=== PATIENT | male | born 1965 | race African-American/Black ===

== ENCOUNTER 2017-05-02 00:06 | Emergency (ER) | payer MEDICARE, MEDICAID ==
[~2017-05-02] VITALS: Ht 182.9 cm; Wt 90.0 kg
[~2017-05-02 00:06] MED LIST: CEPH-368 PO; DOXY100T PO; LACT1CAP24 PO; PHEN100C PO; PHEN100C4 PO; PHEN300C4 PO; PHEN30CA PO; PHEN50TA4 PO
[2017-05-02] MEDS ORDERED: LORazepam 1MG TABLET PO ONE (00:30)
[2017-05-02] MEDS ORDERED: LORazepam 1MG TABLET ONE (00:30)
[2017-05-02 01:42] LABS: BLOOD UREA NITROGEN 19 mg/dL (7-18)
[2017-05-02 01:45] LABS: ASPARTATE AMINO TRANSFERASE 14 U/L (15-37)
[2017-05-02] MEDS ORDERED: FILTER 0.22 MICRON IV ONE (02:30)
[2017-05-02] MEDS ORDERED: PHENYTOIN 100 MG CAPSULE PO ONE (02:30)
[2017-05-02] MEDS ORDERED: PHENYTOIN SODIUM 1,000 MG in SODIUM CHLORIDE 0.9% 100 ML IV ONE (02:30)
[2017-05-02 05:42] VITALS: BP 112/63
== END 2017-05-02 05:46 | disposition home or self-care (01) ==
LOC: ED 05:40
DX: G40.909 Epilepsy, unspecified, not intractable, without status epilepticus (principal); F17.210 Nicotine dependence, cigarettes, uncomplicated
CPT/HCPCS: 36415; 80053; 80185; 80307; 96365; 99284; J1165

== ENCOUNTER 2017-09-21 06:13 | Emergency (ER) | payer MEDICARE, MEDICAID ==
[~2017-09-21] VITALS: Ht 218.4 cm; Wt 87.0 kg
[2017-09-21 06:55] LABS: BASOPHILS # (AUTO) 0.02 x10^3/uL (0-0.1); BASOPHILS % (AUTO) 1 % (0-1); EOSINOPHILS # (AUTO) 0.02 x10^3/uL (0-0.4); EOSINOPHILS % (AUTO) 1 % (1-7); LYMPHOCYTES # (AUTO) 1.21 x10^3/uL (1-3.4); LYMPHOCYTES % (AUTO) 32 % (22-44); MD NO; MEAN CORPUSCULAR HGB CONC 34.8 g/dL (33.2-36.2); MEAN CORPUSCULAR VOLUME 89.2 fL (81-97); MEAN PLATELET VOLUME 6.9 fL (7.4-10.4); MONOCYTES # (AUTO) 0.39 x10^3/uL (0.2-0.8); MONOCYTES % (AUTO) 10 % (2-9); NEUTROPHILS # (AUTO) 2.19 x10^3/uL (1.8-6.8); NEUTROPHILS % (AUTO) 57 % (42-75); PLATELET COUNT 178 x10^3/uL (130-400); RED BLOOD COUNT 5.03 x10^6/uL (4.38-5.82); RED CELL DISTRIBUTION WIDTH 14.7 % (9.4-14.8)
[2017-09-21 07:06] LABS: ANION GAP 6 mmol/L (5-15); CALCIUM 8.8 mg/dL (8.5-10.1); CHLORIDE 109 mmol/L (98-107); CREATININE 0.99 mg/dL (0.7-1.3)
[2017-09-21 08:10] VITALS: BP 120/63
== END 2017-09-21 08:16 | disposition home or self-care (01) ==
LOC: ED 08:00
DX: R56.9 Unspecified convulsions (principal)
CPT/HCPCS: 36415; 80048; 80185; 82040; 85025; 99284

== ENCOUNTER 2017-09-21 11:39 | Emergency (ER) | payer MEDICARE, MEDICAID ==
[~2017-09-21] VITALS: Ht 218.4 cm; Wt 109.0 kg
[2017-09-21 12:45] LABS: AMPHETAMINE SCREEN, URINE Negative (Negative); BARBITURATE SCREEN, URINE Negative (Negative); BENZODIAZEPINE SCREEN, URINE Negative (Negative); CANNABINOID SCREEN, URINE Positive (Negative); COCAINE SCREEN, URINE Negative (Negative); METHADONE SCREEN, URINE Negative (Negative); OPIATE SCREEN, URINE Negative (Negative)
[2017-09-21 14:25] VITALS: BP 146/86
== END 2017-09-21 14:27 | disposition home or self-care (01) ==
LOC: ED 14:19
DX: R56.9 Unspecified convulsions (principal); F12.10 Cannabis abuse, uncomplicated
CPT/HCPCS: 36415; 80156; 80307; 99284; G0479

== ENCOUNTER 2020-02-12 16:24 | Emergency (ER) | payer MEDICARE, MEDICAID ==
[~2020-02-12] VITALS: Ht 218.4 cm; Wt 99.4 kg
[2020-02-12] MEDS ORDERED: SODIUM CHLORIDE FLUSH 10ML SYR IVF ONE (17:00)
[2020-02-12] MEDS ORDERED: KETOROLAC 30 MG/1 ML IVPush ONE (17:00)
[2020-02-12] MEDS ORDERED: ASPIRIN 81 MG TABLET CHEW PO ONE (17:00)
[2020-02-12] MEDS ORDERED: KETOROLAC 30 MG/1 ML ONE (17:07)
[2020-02-12] MEDS ORDERED: ASPIRIN 81 MG TABLET CHEW ONE (17:07)
--- NOTE | 2020-02-12 17:22 | NUR ---
PT HAS HAD SHARP LEFT SIDE CHEST PAIN THAT INCREASES WITH BREATHING OR COUGHING. PT IN BED IN GOWN WITH CONT CARDIAC MONITORM SPO2, BP Q 30 MIN, 20 G IV LEFT ARM. WENT OVER PLAN OF CARE FROM ORDER LIST, AGREES TO PLAN. NAD
[2020-02-12 17:24] LABS: BASOPHILS # (AUTO) 0.01 x10^3/uL (0-0.1); BASOPHILS % (AUTO) 0 % (0-1); EOSINOPHILS # (AUTO) 0.07 x10^3/uL (0-0.4); EOSINOPHILS % (AUTO) 2 % (1-7); LYMPHOCYTES # (AUTO) 1.33 x10^3/uL (1-3.4); LYMPHOCYTES % (AUTO) 30 % (22-44); MD NO; MEAN CORPUSCULAR HEMOGLOBIN 29.9 pg (27.5-34.5); MEAN CORPUSCULAR HGB CONC 34.1 g/dL (33.2-36.2); MEAN CORPUSCULAR VOLUME 87.6 fL (81-97); MONOCYTES # (AUTO) 0.17 x10^3/uL (0.2-0.8); MONOCYTES % (AUTO) 4 % (2-9); NEUTROPHILS # (AUTO) 2.89 x10^3/uL (1.8-6.8); NEUTROPHILS % (AUTO) 65 % (42-75); PLATELET COUNT 178 x10^3/uL (130-400); RED BLOOD COUNT 4.55 x10^6/uL (4.38-5.82); RED CELL DISTRIBUTION WIDTH 16.1 % (9.4-14.8)
[2020-02-12 17:34] LABS: ALBUMIN 3.6 g/dL (3.4-5.0); ANION GAP 4 mmol/L (5-15); CALCIUM 8.7 mg/dL (8.5-10.1); CHLORIDE 110 mmol/L (98-107); CREATININE 1.23 mg/dL (0.7-1.3)
[2020-02-12 17:38] LABS: TROPONIN I < 0.015 ng/mL (0.000-0.045)
--- NOTE | 2020-02-12 18:57 | NUR ---
ASSUMED CARE OF PT.
[2020-02-12 19:20] VITALS: BP 148/72
[2020-02-12] MEDS ORDERED: OMNIPAQUE 350 MG/ML, 100ML BOTTLE ONE (21:58)
== END 2020-02-12 19:39 | disposition home or self-care (01) ==
LOC: ED 19:28
DX: R07.89 Other chest pain (principal); R05 Cough; R06.02 Shortness of breath; R94.31 Abnormal electrocardiogram [ECG] [EKG]; G40.909 Epilepsy, unspecified, not intractable, without status epilepticus
CPT/HCPCS: 36415; 71046; 71275; 80048; 82040; 83690; 84484; 85025; 85379; 93005; 96374; 99285; J1885; Q9967

== ENCOUNTER 2020-12-27 12:56 | Emergency (ER) | payer MEDICARE, MEDICAID ==
[~2020-12-27] VITALS: Ht 218.4 cm; Wt 108.7 kg
--- NOTE | 2020-12-27 13:42 | NUR ---
PER CAREGIVER, PT RESIDES IN CARE HOME WITH DESIGNATION OF INDEPENDENT LIVING. PMH-SCHIZOPHRENIA, HTN, SEIZURES, HIGH CHOLESTEROL. CAREGIVER REPORTS LETHARGY AND PERSONALITY AND AMS CHANGES SINCE YESTERDAY NIGHT. THIS CAREGIVER FIRST SAW PT THIS AM AT 1000 AND NOTICED SLOW RESPONSES, LETHARGY. SHE ALSO REPORTS PT HAD MISSED YESTERDAY'S MEDICATION. CAREGIVER LEAVING ED TO P/U OTHER RESIDENT BUT WILL BE BACK. SHELLIE Viveros [phone]
[2020-12-27 13:55] LABS: BASOPHILS % (AUTO) 1 % (0-1); EOSINOPHILS % (AUTO) 1 % (1-7); LYMPHOCYTES % (AUTO) 26 % (22-44); MEAN CORPUSCULAR HEMOGLOBIN 31.8 pg (27.5-34.5); MEAN CORPUSCULAR HGB CONC 35.7 g/dL (33.2-36.2); MEAN PLATELET VOLUME 7.7 fL (7.4-10.4); MONOCYTES % (AUTO) 10 % (2-9); NEUTROPHILS % (AUTO) 63 % (42-75); PLATELET COUNT 159 x10^3/uL (130-400); RED BLOOD COUNT 4.39 x10^6/uL (4.38-5.82); RED CELL DISTRIBUTION WIDTH 15.3 % (9.4-14.8)
[2020-12-27 13:57] LABS: MD NO
[2020-12-27 14:08] LABS: ALANINE AMINOTRANSFERASE 31 U/L (12-78); ALBUMIN 3.7 g/dL (3.4-5.0); ANION GAP 5 mmol/L (5-15); CALCIUM 8.5 mg/dL (8.5-10.1); CHLORIDE 114 mmol/L (98-107)
[2020-12-27 14:11] LABS: ALKALINE PHOSPHATASE 84 U/L (45-117); BILIRUBIN,TOTAL 0.5 mg/dL (0.2-1.0); CREATININE 1.17 mg/dL (0.7-1.3); TOTAL PROTEIN 6.7 g/dL (6.4-8.2)
--- NOTE | 2020-12-27 15:10 | NUR ---
CALL TO CAREGIVER TO NOTIFY PT TO BE DISCHARGED.
--- NOTE | 2020-12-27 15:16 | NUR ---
BREAK RN: PT IS A&O X4. PT REPORTS HIS HEADACHE HAS RESOLVED. PT HAS A RIDE HOME. VS STABLE. PT DISCHARGED PER DR PAUL.
[2020-12-27 15:17] VITALS: BP 104/61
--- NOTE | 2020-12-27 15:39 | NUR ---
CAREGIVER AT BS. PT DISCHARGED HOME WITH HER.
== END 2020-12-27 15:19 | disposition home or self-care (01) ==
LOC: ED 15:13
DX: R51.9 Headache, unspecified (principal)
CPT/HCPCS: 36415; 70450; 80053; 85025; 99284